=== PATIENT | male | born 1950 | race Caucasian/White ===

== ENCOUNTER → 2016-06-24 | Outpatient (CLI) | payer OTHER, MEDICARE ==
--- NOTE | 2016-06-24 11:24 | DX ---
Right Foot, Three Views Indication: Pain with walking. Evaluate for fracture. Comparison: None. Findings: The bones are anatomically aligned. No Lisfranc deformity or hallux valgus deformity. No p eriosteal reaction, stress fracture, or bone lesion. Minimal osteoarthritis is present at the first m etatarsophalangeal joint and throughout the interphalangeal joints of the forefoot. Small plantar spu r is evident on the lateral view. Impression: 1. No fracture or stress response. 2. 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 3. Plantar spur.
== END ==
LOC: BMCIMAGING 10:10
PROVIDERS: ATTEND Internal Medicine
DX: M19.071 Primary osteoarthritis, right ankle and foot (principal); M77.31 Calcaneal spur, right foot

== ENCOUNTER → 2017-06-16 | Outpatient (CLI) | payer OTHER, MEDICARE | LOC: FCPNEURO 21:30 | PROVIDERS: ATTEND Psychiatry & Neurology Sleep Medicine | DX: G47.33 Obstructive sleep apnea (adult) (pediatric) (principal); G47.31 Primary central sleep apnea ==

== ENCOUNTER → 2017-11-06 | Outpatient (CLI) | payer OTHER, MEDICARE | LOC: FCPNEURO 21:00 | PROVIDERS: ATTEND Psychiatry & Neurology Sleep Medicine | DX: G47.39 Other sleep apnea (principal) ==